=== PATIENT | female | born 1945 | race Two or more races ===

== ENCOUNTER 2018-12-28 18:40 | Emergency (ER) | payer SELFPAY ==
[~2018-12-28] VITALS: Ht 160 cm; Wt 59.0 kg
[2018-12-28 19:15] VITALS: BP 138/63
[2018-12-28] MEDS ORDERED: IV NORMAL SALINE 1000ML BAG 1,000 ML IV SCH (19:57)
[2018-12-28] MEDS ORDERED: ONDANSETRON PF 4 MG/2 ML VIAL. IV ONE (20:00)
[2018-12-28] MEDS ORDERED: fentaNYL PF VIAL 100 MCG/2 ML VIAL IV PRN (20:00)
--- NOTE | 2018-12-28 20:02 | PHYS DOC ---
Adult General Chief Complaint Chief Complaint: BACK PAIN - NO INJURY HPI HPI Patient is a 73 year old female who presents with right sided back pain that started approximately 5 hours prior to arrival. Nothing seems to make the discomfort better or worse. No medication was taken at home. There has been no nausea or vomiting. Patient reports the pain is severe. No previous history of similar pain. Patient reports that there has been a subjective fever, no temperature was taken at home.[] Review of Systems Review of Systems Constitutional: Denies fever or chills [] Eyes: Denies change in visual acuity, redness, or eye pain [] HENT: Denies nasal congestion or sore throat [] Respiratory: Denies cough or shortness of breath [] Cardiovascular: No chest pain or palpitations[] GI: Denies abdominal pain, nausea, vomiting, bloody stools or diarrhea [] : Denies dysuria or hematuria [] Musculoskeletal: See history of present illness[] Integument: Denies rash or skin lesions [] Neurologic: Denies headache, focal weakness or sensory changes [] Endocrine: Denies polyuria or polydipsia [] All other systems were reviewed and found to be within normal limits, except as documented in this note. Current Medications Current Medications Current Medications Medications (Trade) Dose Ordered Sig/Jose Luis Start Time Stop Time Status Last Admin Dose Admin Ceftriaxone Sodium (Rocephin) 1 gm 1X ONCE 12/28/18 21:45 12/28/18 21:46 Fentanyl Citrate (Fentanyl 2ml Vial) 25 mcg PRN Q15MIN PRN 12/28/18 20:00 12/29/18 19:59 Ondansetron HCl (Zofran) 4 mg 1X ONCE 12/28/18 20:00 12/28/18 20:58 DC Sodium Chloride 1,000 ml @ 100 mls/hr Q10H 12/28/18 19:57 12/29/18 05:56 Allergies Allergies Allergies Coded Allergies Type Severity Reaction Last Updated Verified No Known Drug Allergies 12/28/18 No Physical Exam Physical Exam Constitutional: Well developed, well nourished, moderate discomfort, non-toxic appearance. [] HENT: Normocephalic, atraumatic, bilateral external ears normal, oropharynx moist, no oral exudates, nose normal. [] Eyes: PERRLA, EOMI, conjunctiva normal, no discharge. [] Neck: Normal range of motion, no tenderness, supple, no stridor. [] Cardiovascular:Heart rate regular rhythm, no murmur [] Lungs & Thorax: Bilateral breath sounds clear to auscultation [] Abdomen: Bowel sounds normal, soft, no tenderness, no masses, no pulsatile masses. [] Skin: Warm, dry, no erythema, no rash. [] Back: Tenderness along the right lumbar and lower thoracic paraspinal musculature, equivocal right costovertebral angle tenderness. [] Extremities: No tenderness, no cyanosis, no clubbing, ROM intact, no edema. [] Neurologic: Alert and oriented X 3, normal motor function, normal sensory function, no focal deficits noted. [] Psychologic: Affect normal, judgement normal, mood normal. [] Current Patient Data Lab Values Laboratory Tests Test 12/28/18 19:30 12/28/18 20:36 Urine Collection Type Unknown Urine Color Yellow Urine Clarity Clear Urine pH 8.0 Urine Specific [place] 1.010 Urine Protein Negative mg/dL (NEG-TRACE) Urine Glucose (UA) Negative mg/dL (NEG) Urine Ketones (Stick) Negative mg/dL (NEG) Urine Blood Small (NEG) Urine Nitrite Negative (NEG) Urine Bilirubin Negative (NEG) Urine Urobilinogen Dipstick 0.2 mg/dL (0.2 mg/dL) Urine Leukocyte Esterase Trace (NEG) Urine RBC 6-10 /HPF (0-2) Urine WBC 5-10 /HPF (0-4) Urine Squamous Epithelial Cells Few /LPF Urine Bacteria Few /HPF (0-FEW) White Blood Count 9.1 x10^3/uL (4.0-11.0) Red Blood Count 4.64 x10^6/uL (3.50-5.40) Hemoglobin 13.8 g/dL (12.0-15.5) Hematocrit 40.4 % (36.0-47.0) Mean Corpuscular Volume 87 fL (79-100) Mean Corpuscular Hemoglobin 30 pg (25-35) Mean Corpuscular Hemoglobin Concent 34 g/dL (31-37) Red Cell Distribution Width 13.1 % (11.5-14.5) Platelet Count 377 x10^3/uL (140-400) Neutrophils (%) (Auto) 59 % (31-73) Lymphocytes (%) (Auto) 34 % (24-48) Monocytes (%) (Auto) 5 % (0-9) Eosinophils (%) (Auto) 2 % (0-3) Basophils (%) (Auto) 1 % (0-3) Neutrophils # (Auto) 5.3 x10^3uL (1.8-7.7) Lymphocytes # (Auto) 3.1 x10^3/uL (1.0-4.8) Monocytes # (Auto) 0.4 x10^3/uL (0.0-1.1) Eosinophils # (Auto) 0.2 x10^3/uL (0.0-0.7) Basophils # (Auto) 0.1 x10^3/uL (0.0-0.2) Prothrombin Time 12.2 SEC (11.7-14.0) Prothrombin Time INR 0.9 (0.8-1.1) Sodium Level 143 mmol/L (136-145) Potassium Level 3.9 mmol/L (3.5-5.1) Chloride Level 104 mmol/L (98-107) Carbon Dioxide Level 27 mmol/L (21-32) Anion Gap 12 (6-14) Blood Urea Nitrogen 19 mg/dL (7-20) Creatinine 0.8 mg/dL (0.6-1.0) Estimated GFR (Cockcroft-Gault) 69.9 BUN/Creatinine Ratio 24 (6-20) H Glucose Level 113 mg/dL (70-99) H Calcium Level 9.8 mg/dL (8.5-10.1) Total Bilirubin 0.2 mg/dL (0.2-1.0) Aspartate Amino Transferase (AST) 26 U/L (15-37) Alanine Aminotransferase (ALT) 28 U/L (14-59) Alkaline Phosphatase 94 U/L (46-116) Troponin I Quantitative < 0.017 ng/mL (0.000-0.055) BN-Ove-W-Type Natriuretic Peptide 133 pg/mL (0-449) Total Protein 7.5 g/dL (6.4-8.2) Albumin 4.0 g/dL (3.4-5.0) Albumin/Globulin Ratio 1.1 (1.0-1.7) Lipase 259 U/L (73-393) Laboratory Tests 12/28/18 20:36 Laboratory Tests 12/28/18 20:36 EKG EKG EKG shows a sinus rhythm at 73 bpm, no ST elevations, left axis deviation, right bundle branch block, QTC 442 ms, frequent PVCs. There is no old EKG available for comparison. Interpreted by me at 2016.[] Radiology/Procedures Radiology/Procedures CT abdomen/pelvis without contrast 12/28/2018 7:57 PM INDICATION: Right back and flank pain COMPARISON: None available TECHNIQUE: Multiple axial CT images of the abdomen and pelvis were obtained without intravenous contrast. Coronal and sagittal reformats are provided. FINDINGS: There is subsegmental atelectasis at the lung bases. Heart size is within normal limits. Evaluation of the solid abdominal viscera is limited by lack of intravenous contrast. There is a 11 mm hypodense lesion in the posterior right hepatic lobe with attenuation suggestive of a simple cyst. Spleen is nonenlarged. Adrenal glands are normal in appearance. No peripancreatic inflammatory changes are identified. Gallbladder is present without adjacent inflammation. Abdominal aorta is normal in course and caliber. There is a small hiatal hernia. There are no pathologically enlarged lymph nodes in abdomen and pelvis. There is no free fluid or free intraperitoneal air. There is moderate colonic diverticulosis without adjacent inflammatory changes. Normal appendix is visualized. No evidence for bowel obstruction or inflammation. The kidneys are relatively symmetric in appearance. There is no suspicious renal mass within the limitations of a noncontrast examination. There is no hydronephrosis. There are no calculi within the kidneys, ureters or urinary bladder. Urinary bladder is within normal limits given degree of distention. No suspicious pelvic masses are identified. No suspicious osseous amount is identified. There is a superior plate Schmorl's node at T10 with approximately 25 percent height loss. IMPRESSION: 1. No evidence for obstructive uropathy. 2. No acute fracture or malalignment of the lumbar spine. There is a superior plate Schmorl's node at T10 with approximately 25 percent height loss, likely chronic. [] Course & Med Decision Making Course & Med Decision Making Pertinent Labs and Imaging studies reviewed. (See chart for details) ED course: Patient arrived, was placed in bed, and tolerated exam well. She was transported to and from [place] with any complications. After the return of laboratory findings indicating white cells in urine with her having the right costovertebral angle tenderness, concerned about pyelonephritis. Giving first dose of antibiotics while in the emergency department. Discussed findings and plan with patient and family who voiced understanding. All questions were answered. Cold decision making: Patient with no evidence of significant intra-abdominal pathology on CT scan, evidence of urinary tract infection on laboratory testing , no evidence of dissecting aneurysm, no appendicitis, no obstruction, no evidence of an acute coronary syndrome.[] Dragon Disclaimer Dragon Disclaimer This electronic medical record was generated, in whole or in part, using a voice recognition dictation system. Departure Departure Impression: Primary Impression: Urinary tract infection Disposition: HOME, SELF-CARE Condition: IMPROVED Patient Instructions: Urinary Tract Infection Additional Instructions: Drink plenty of fluids. Follow-up with your regular doctor in 2 days. If you do not have a regular doctor list of local clinics will be provided for you. Return to the ER if worsening discomfort or any other concerns. Scripts Hydrocodone/Apap 5-325 (NORCO 5-325 TABLET) 1 Each Tablet 1-2 EACH PO PRN Q6HRS PRN for SEVERE PAIN, #15 as needed for pain Prov: REJI JAIN DO 12/28/18 Meloxicam (MELOXICAM) 7.5 Mg Tablet 7.5 MG PO DAILY, #20 TAB Prov: REJI JAIN DO 12/28/18 Cephalexin (CEPHALEXIN) 500 Mg Tablet 1 TAB PO TID, #30 TAB Prov: REJI JAIN DO 12/28/18 Problem Qualifiers Primary Impression: Urinary tract infection Urinary tract infection type: site unspecified Hematuria presence: with hematuria Qualified Codes: N39.0 - Urinary tract infection, site not specified ; R31.9 - Hematuria, unspecified REJI JAIN DO Dec 28, 2018 20:02
[2018-12-28 20:10] LABS: BILIRUBIN,URINE NEGATIVE (NEG); CLARITY,URINE CLEAR; COLOR,URINE YELLOW; NITRITE,URINE NEGATIVE (NEG); PROTEIN,URINE NEGATIVE (NEG-TRACE); UROBILINOGEN,URINE 0.2 mg/dL (0.2 mg/dL)
[2018-12-28 20:26] LABS: BACTERIA,URINE FEW /HPF (0-FEW); SQUAMOUS EPITHELIAL CELL,UR FEW /LPF
[2018-12-28 20:44] LABS: BASO # 0.1 x10^3/uL (0.0-0.2); BASO % 1 % (0-3); EOS # 0.2 x10^3/uL (0.0-0.7); EOS % 2 % (0-3); HEMATOCRIT 40.4 % (36.0-47.0); HEMOGLOBIN 13.8 g/dL (12.0-15.5); LYMPH # 3.1 x10^3/uL (1.0-4.8); LYMPH % 34 % (24-48); MEAN CORPUSCULAR HEMOGLOBIN 30 pg (25-35); MEAN CORPUSCULAR HGB CONC 34 g/dL (31-37); MEAN CORPUSCULAR VOLUME 87 fL (79-100); MONO # 0.4 x10^3/uL (0.0-1.1); MONO % 5 % (0-9); NEUT # 5.3 x10^3uL (1.8-7.7); NEUT % 59 % (31-73); PLATELET COUNT 377 x10^3/uL (140-400); RED BLOOD COUNT 4.64 x10^6/uL (3.50-5.40); RED CELL DISTRIBUTION WIDTH 13.1 % (11.5-14.5); WHITE BLOOD COUNT 9.1 x10^3/uL (4.0-11.0)
--- NOTE | 2018-12-28 20:46 | RAD ---
PQRS Compliance Statement: One or more of the following individualized dose reduction techniques were utilized for this examination: 1. Automated exposure control 2. Adjustment of the mA and/or kV according to patient size 3. Use of iterative reconstruction technique CT abdomen/pelvis without contrast 12/28/2018 7:57 PM INDICATION: Right back and flank pain COMPARISON: None available TECHNIQUE: Multiple axial CT images of the abdomen and pelvis were obtained without intravenous contrast. Coronal and sagittal reformats are provided. FINDINGS: There is subsegmental atelectasis at the lung bases. Heart size is within normal limits. Evaluation of the solid abdominal viscera is limited by lack of intravenous contrast. There is a 11 mm hypodense lesion in the posterior right hepatic lobe with attenuation suggestive of a simple cyst. Spleen is nonenlarged. Adrenal glands are normal in appearance. No peripancreatic inflammatory changes are identified. Gallbladder is present without adjacent inflammation. Abdominal aorta is normal in course and caliber. There is a small hiatal hernia. There are no pathologically enlarged lymph nodes in abdomen and pelvis. There is no free fluid or free intraperitoneal air. There is moderate colonic diverticulosis without adjacent inflammatory changes. Normal appendix is visualized. No evidence for bowel obstruction or inflammation. The kidneys are relatively symmetric in appearance. There is no suspicious renal mass within the limitations of a noncontrast examination. There is no hydronephrosis. There are no calculi within the kidneys, ureters or urinary bladder. Urinary bladder is within normal limits given degree of distention. No suspicious pelvic masses are identified. No suspicious osseous amount is identified. There is a superior plate Schmorl's node at T10 with approximately 25 percent height loss. IMPRESSION: 1. No evidence for obstructive uropathy. 2. No acute fracture or malalignment of the lumbar spine. There is a superior plate Schmorl's node at T10 with approximately 25 percent height loss, likely chronic. Electronically signed by: Naila Padilla MD (12/28/2018 8:43 PM) [facility]
[2018-12-28 20:53] LABS: PROTHROMBIN TIME PATIENT 12.2 SEC (11.7-14.0)
[2018-12-28 20:54] LABS: CALCIUM 9.8 mg/dL (8.5-10.1); CREATININE 0.8 mg/dL (0.6-1.0); GFR 69.9; POTASSIUM 3.9 mmol/L (3.5-5.1)
[2018-12-28 21:00] LABS: ALBUMIN/GLOBULIN RATIO 1.1 (1.0-1.7); TOTAL BILIRUBIN 0.2 mg/dL (0.2-1.0); TOTAL PROTEIN 7.5 g/dL (6.4-8.2)
[2018-12-28] MEDS ORDERED: CEPH500T PO (21:26)
[2018-12-28] MEDS ORDERED: HYDR-3164 PO (21:26)
[2018-12-28] MEDS ORDERED: MELO7.5T29 PO (21:26)
[2018-12-28] MEDS ORDERED: cefTRIAXone IV Push 1 GM VIAL. IVP ONE (21:45)
--- NOTE | 2018-12-29 07:43 | EKG ---
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
== END 2018-12-28 21:40 | disposition home or self-care (01) ==
LOC: EDSEX 18:40 → ER 18:40
DX: N39.0 Urinary tract infection, site not specified (principal); M54.9 Dorsalgia, unspecified; R50.9 Fever, unspecified
CPT/HCPCS: 36415; 74176; 80053; 81001; 83690; 83880; 84484; 85025; 85610; 93005; 96374; 96375; 99284; J0696; J2405; J3010; J7030; 87086